=== PATIENT | female | born 1985 | race Caucasian/White ===

== ENCOUNTER 2016-11-18 10:57 | Emergency (ER) | payer OTHER ==
[~2016-11-18] VITALS: Ht 154.9 cm; Wt 94.4 kg
[~2016-11-18 10:57] MED LIST: ACET-1256 PO; CITA20TA4 PO; LORA10TA5 PO; LRS10 PO; NAPR-1169 PO; PRLSR20 PO
[2016-11-18 11:03] VITALS: TEMP 36.3; Ht 154.9 cm; Wt 94.4 kg
[2016-11-18] MEDS ORDERED: CITA40TA4 PO (11:29)
[2016-11-18] MEDS ORDERED: OMEP20CA9 PO (11:29)
--- NOTE | 2016-11-18 11:47 | DIAGNOSTIC IMAGING REPORT ---
CHEST ONE VIEW PORTABLE HISTORY: Atypical Chest Pain COMPARISON: Chest 07/12/2015. FINDINGS: The lungs are clear. Cardiac silhouette is normal in size. No pleural effusions. No pneumothorax. There are low lung volumes. IMPRESSION: No acute process. Electronically signed by: Andrew Lloyd M.D. 11/18/2016 11:46 AM Dictated Date/Time: 11/18/2016 11:45 AM
[2016-11-18] MEDS ORDERED: ATV1 PO (11:56)
[2016-11-18 13:08] LABS: BASO % 0.2 %; BASO ABS # 0.02 K/uL (0-0.2); COMPLETE YES; EOS % 1.2 %; HEMATOCRIT 43.8 % (37-47); IG% 0.2 %; LYMPH % 23.3 %; LYMPH ABS # 2.19 K/uL (1.2-3.4); MEAN CELL VOLUME 85.9 fL (80-100); MEAN CORPUSCULAR HEMOGLOBIN 29.4 pg (25-34); MEAN CORPUSCULAR HGB CONC 34.2 g/dl (32-36); MEAN PLATELET VOLUME 9.5 fL (7.4-10.4); MONO % 7.2 %; NEUT % 67.9 %; PLATELET COUNT 272 K/uL (130-400); WHITE BLOOD COUNT 9.38 K/uL (4.8-10.8)
[2016-11-18 13:17] LABS: BLOOD UREA NITROGEN 8 mg/dl (7-18); BUN/CREATININE RATIO 12.6 (10-20); CALCIUM 8.9 mg/dl (8.5-10.1); CARBON DIOXIDE 27 mmol/L (21-32); CHLORIDE 108 mmol/L (98-107); CREATININE 0.67 mg/dl (0.60-1.20); GLUCOSE 90 mg/dl (70-99); POTASSIUM 3.8 mmol/L (3.5-5.1); SODIUM 141 mmol/L (136-145)
[2016-11-18] MEDS ORDERED: SODIUM CHLORIDE 0.9% 1000ML 1,000 ML IV STA (13:39)
[2016-11-18] MEDS ORDERED: OPTIRAY 320 IV PRN (13:45)
--- NOTE | 2016-11-18 14:20 | DIAGNOSTIC IMAGING REPORT ---
CT ANGIOGRAM OF THE CHEST CLINICAL HISTORY: Atypical chest pain. COMPARISON STUDY: Chest x-ray dated 11/18/2016. TECHNIQUE: Following the IV administration of 78 cc of Optiray 320, CT angiogram of the chest was performed from the upper abdomen to the thoracic inlet utilizing the pulmonary embolus protocol. Images are reviewed in the axial, sagittal, and coronal planes. 3-D MIPS images are created and assessed. IV contrast was administered without complication. A dose lowering technique was utilized adhering to the principles of ALARA. CT DOSE: 528.30 mGy.cm FINDINGS: Thyroid: Imaged portions of the thyroid gland are normal in size and attenuation. Thoracic aorta: The thoracic aorta is normal in caliber and demonstrates standard 3-vessel arch anatomy. No dissection is seen. Pulmonary vasculature: The pulmonary trunk is normal in caliber. There are no filling defects identified in main, lobar, or segmental pulmonary branches to suggest pulmonary embolus. Heart: The heart is normal in size and configuration, and there is trace pericardial fluid. Lungs and pleural spaces: The lungs and pleural spaces are clear noting dependent atelectasis. The trachea and central airways are patent. Mediastinum: There is no mediastinal lymphadenopathy. Yuly: Clear. Axillae: There is no axillary lymphadenopathy. Upper abdomen: There is a tiny hiatal hernia. Partially visualized upper abdominal viscera is otherwise within normal limits. Skeletal structures: No lytic or blastic bony lesions are seen. IMPRESSION: 1. There is no evidence of pulmonary embolus in the main, lobar, or segmental pulmonary arteries. 2. The lungs are clear. Electronically signed by: Nimesh Guzmán M.D. 11/18/2016 2:18 PM Dictated Date/Time: 11/18/2016 2:15 PM
[2016-11-18 14:26] VITALS: BP 119/82; PULSE 95; O2SAT 99
--- NOTE | 2016-11-18 14:32 | EMERGENCY ROOM VISIT NOTE ---
History Report prepared by Kurt: Zayra Puga Under the Supervision of: Dr. Kwame Cui M.D. First contact with patient: 11:16 Chief Complaint: WEAKNESS Stated Complaint: WEAKNESS, HEAVINESS IN ARM/PAIN History of Present Illness The patient is a 31 year old female who presents to the Emergency Room with complaints of intermittent weakness for the past 2 weeks. With the weakness, she also gets chest discomfort. She is currently does not have any pain. She has not taken any medications for her pain. She is having elbow pain which has traveled up her arm and headache. She has SOB times and had some tingling this morning. She reports abdominal pain which started 1.5 weeks ago. She denies any swelling in the legs or ankles, dysuria, or diarrhea. She denies any falls or injury. She denies any history of blood clots. She denies any alcohol or drug use. Source of History: patient Onset: 2 weeks ago Position: other (global) Quality: other (weakness) Timing: intermittent Associated Symptoms: + headache, + chest pain, + SOB, + abdominal pain, No diarrhea, No urinary symptoms Note: Pt reports tingling, left arm pain. Pt denies swelling in legs or ankles. Review of Systems See HPI for pertinent positives & negatives. A total of 10 systems reviewed and were otherwise negative. Past Medical & Surgical Medical Problems: (1) Depression Family History No pertinent family history stated. Social History Smoking Status: Never Smoker Alcohol Use: none Housing Status: lives with family Current/Historical Medications Scheduled Citalopram (Citalopram Hydrobromide), 1 TAB PO DAILY Loratadine (Claritin), 10 MG PO DAILY Omeprazole (Prilosec), 1 TAB PO BID Scheduled PRN Acetaminophen (Tylenol), 500 MG PO Q4 PRN for Pain Naproxen (Naprosyn), 500 MG PO BID PRN for Pain Miscellaneous Medications Lorazepam (Lorazepam), 1 TAB PO Allergies Coded Allergies: Amoxicillin (Verified Allergy, Unknown, hives, 11/18/16) Physical Exam Vital Signs Date Time Temp Pulse Resp B/P (MAP) Pulse Ox O2 Delivery O2 Flow Rate FiO2 11/18/16 14:26 95 18 119/82 99 Room Air 11/18/16 13:36 90 18 144/97 98 Room Air 8/3/17 13:21 89 11/18/16 11:17 98 11/18/16 11:03 36.3 80 18 151/96 97 Room Air Physical Exam GENERAL: Patient is anxious appearing and in minimal distress. HEENT: No acute trauma, normocephalic atraumatic, mucous membranes moist, no nasal congestion, no scleral icterus. NECK: No stridor, no adenopathy, no meningismus, trachea is midline. LUNGS: No dyspnea. Clear to auscultation and equal bilaterally. No wheeze, no rhonchi. HEART: Regular rate and rhythm. No murmurs, rubs, gallops appreciated. ABDOMEN: Soft, nontender, bowel sounds positive, no masses appreciated, no peritonitis. BACK: No midline tenderness, no CVA tenderness EXTREMITIES: Normal motion all extremities, no cyanosis, no edema. NEUROLOGIC: Alert and oriented, no acute motor or sensory deficits, no focal weakness, cranial nerves grossly intact. SKIN: No rash, no jaundice, no diaphoresis. Medical Decision & Procedures ER Provider Diagnostic Interpretation: X ray results are stated below per my interpretation and the radiologist's interpretation. Radiology results and stated below per my review and radiologist interpretation: CHEST ONE VIEW PORTABLE HISTORY: Atypical Chest Pain COMPARISON: Chest 07/12/2015. FINDINGS: The lungs are clear. Cardiac silhouette is normal in size. No pleural effusions. No pneumothorax. There are low lung volumes. IMPRESSION: No acute process. Electronically signed by: Andrew Lloyd M.D. 11/18/2016 11:46 AM Dictated Date/Time: 11/18/2016 11:[address] ANGIOGRAM OF THE CHEST CLINICAL HISTORY: Atypical chest pain. COMPARISON STUDY: Chest x-ray dated 11/18/2016. TECHNIQUE: Following the IV administration of 78 cc of Optiray 320, CT angiogram of the chest was performed from the upper abdomen to the thoracic inlet utilizing the pulmonary embolus protocol. Images are reviewed in the axial, sagittal, and coronal planes. 3-D MIPS images are created and assessed. IV contrast was administered without complication. A dose lowering technique was utilized adhering to the principles of ALARA. CT DOSE: 528.30 mGy.cm FINDINGS: Thyroid: Imaged portions of the thyroid gland are normal in size and attenuation. Thoracic aorta: The thoracic aorta is normal in caliber and demonstrates standard 3-vessel arch anatomy. No dissection is seen. Pulmonary vasculature: The pulmonary trunk is normal in caliber. There are no filling defects identified in main, lobar, or segmental pulmonary branches to suggest pulmonary embolus. Heart: The heart is normal in size and configuration, and there is trace pericardial fluid. Lungs and pleural spaces: The lungs and pleural spaces are clear noting dependent atelectasis. The trachea and central airways are patent. Mediastinum: There is no mediastinal lymphadenopathy. Yuly: Clear. Axillae: There is no axillary lymphadenopathy. Upper abdomen: There is a tiny hiatal hernia. Partially visualized upper abdominal viscera is otherwise within normal limits. Skeletal structures: No lytic or blastic bony lesions are seen. IMPRESSION: 1. There is no evidence of pulmonary embolus in the main, lobar, or segmental pulmonary arteries. 2. The lungs are clear. Electronically signed by: Nimesh Guzmán M.D. 11/18/2016 2:18 PM Dictated Date/Time: 11/18/2016 2:15 PM Laboratory Results 11/18/16 11:35 Red Blood Count 5.10, Mean Corpuscular Volume 85.9, Mean Corpuscular Hemoglobin 29.4, Mean Corpuscular Hemoglobin Concent 34.2, Mean Platelet Volume 9.5, Neutrophils (%) (Auto) 67.9, Lymphocytes (%) (Auto) 23.3, Monocytes (%) (Auto) 7.2, Eosinophils (%) (Auto) 1.2, Basophils (%) (Auto) 0.2, Neutrophils # (Auto) 6.36, Lymphocytes # (Auto) 2.19, Monocytes # (Auto) 0.68, Eosinophils # (Auto) 0.11, Basophils # (Auto) 0.02 11/18/16 11:35 Test 11/18/16 11:35 11/18/16 11:37 11/18/16 13:09 White Blood Count 9.38 K/uL (4.8-10.8) Red Blood Count 5.10 M/uL (4.2-5.4) Hemoglobin 15.0 g/dL (12.0-16.0) Hematocrit 43.8 % (37-47) Mean Corpuscular Volume 85.9 fL (80-100) Mean Corpuscular Hemoglobin 29.4 pg (25-34) Mean Corpuscular Hemoglobin Concent 34.2 g/dl (32-36) Platelet Count 272 K/uL (130-400) Mean Platelet Volume 9.5 fL (7.4-10.4) Neutrophils (%) (Auto) 67.9 % Lymphocytes (%) (Auto) 23.3 % Monocytes (%) (Auto) 7.2 % Eosinophils (%) (Auto) 1.2 % Basophils (%) (Auto) 0.2 % Neutrophils # (Auto) 6.36 K/uL (1.4-6.5) Lymphocytes # (Auto) 2.19 K/uL (1.2-3.4) Monocytes # (Auto) 0.68 K/uL (0.11-0.59) Eosinophils # (Auto) 0.11 K/uL (0-0.5) Basophils # (Auto) 0.02 K/uL (0-0.2) RDW Standard Deviation 43.0 fL (36.4-46.3) RDW Coefficient of Variation 13.7 % (11.5-14.5) Immature Granulocyte % (Auto) 0.2 % Immature Granulocyte # (Auto) 0.02 K/uL (0.00-0.02) Anion Gap 6.0 mmol/L (3-11) Est Creatinine Clear Calc Drug Dose 125.2 ml/min Estimated GFR () 133.9 Estimated GFR (Non- 115.5 BUN/Creatinine Ratio 12.6 (10-20) Calcium Level 8.9 mg/dl (8.5-10.1) Troponin I < 0.015 ng/ml (0-0.045) Bedside D-Dimer > 450 ng/mlFEU (0-450) D-Dimer 460 ug/L FEU (0-500) Laboratory results as reviewed by me. Medications Administered Medications (Trade) Dose Ordered Sig/Jacy Route Start Time Stop Time Status Last Admin Dose Admin Sodium Chloride 1,000 ml @ 999 mls/hr Q1H1M STAT IV 11/18/16 13:39 11/18/16 14:39 DC 11/18/16 13:39 999 MLS/HR ECG Indication: weakness Rate (beats per minute): 88 Rhythm: normal sinus Findings: no acute ischemic change, no ectopy ED Course 1117: The patient was evaluated in room B11B. A complete history and physical exam was performed. 1338: I reevaluated the patient. She would like a chest CT. I discussed the multiple risks and she wishes to proceed. 1339: NSS 1000 ml @ 999 mls/hr IV. 1430: I reevaluated the patient. I discussed results and discharge instructions : she verbalized understanding and agreement. The patient is ready for discharge. Medical Decision Differential: Cardiac Ischemia (STEMI, NSTEMI, Unstable Angina, etc), Aortic Dissection, Arrhythmia, Pulmonary Embolism, Pneumonia, Pneumothorax, MSK, Infectious, Pericarditis/Myocarditis, Esophageal Rupture, Gastrointestinal, amongst other pathologies entertained. 31 yr old female with complaint of generalized fatigue, left chest pain, shortness of breath, weakness, headache, abdominal discomfort, arm/foot/mouth tingling amongst large host of other positive review of systems. Symptoms coming in waves and not here currently. POC Dimer positive though lab is version is actually negative. I have low suspicion of PE, however, after discussion with patient regarding this, my clinical suspicion and risks of imaging, she very much wishes to have CT PE study done. Fortunately this is negative. Rest of labs look OK. EKG Trop unremarkable. She has stable vitals , no neuro deficits, no head injury nor other neuro findings and I feel that further work-up can be completed as outpatient. Customary review of discharge instructions reviewed. Medication Reconcilliation Current Medication List: was personally reviewed by me Blood Pressure Screening Patient's blood pressure: Normal blood pressure Blood pressure disposition: Did not require urgent referral Impression Primary Impression: Generalized weakness Additional Impression: Chest pain Scribe Attestation The scribe's documentation has been prepared under my direction and personally reviewed by me in its entirety. I confirm that the note above accurately reflects all work, treatment, procedures, and medical decision making performed by me. Departure Information Dispostion Home / Self-Care Referrals No Doctor, Assigned (PCP) Patient Instructions My [facility] Additional Instructions A very large work-up was done which was unremarkable. You have been examined and treated today on an emergency basis only. This is not a substitute for, or an effort to provide, complete comprehensive medical care. It is impossible to recognize and treat all injuries or illnesses in a single emergency department visit. It is therefore important that you follow up closely with your Primary Physician. Call as soon as possible for an appointment so you can review all labs, imaging and other testing that you had. Return to Emergency Department, call 911 or seek immediate medical attention if you feel your symptoms are worsening. Problem Qualifiers
== END 2016-11-18 14:48 | disposition home or self-care (01) ==
LOC: C.EDB 10:59
DX: R53.1 Weakness (principal); R07.9 Chest pain, unspecified; F32.9 Major depressive disorder, single episode, unspecified; Z79.899 Other long term (current) drug therapy

== ENCOUNTER → 2017-06-14 | Outpatient (CLI) | payer OTHER ==
[~2017-06-14] MED LIST changes: +ATV1 PO; -CITA20TA4 PO; +CITA40TA4 PO; -LORA10TA5 PO; +LORA10TA6 PO; -LRS10 PO; +OMEP20CA9 PO; -PRLSR20 PO
== END | disposition home or self-care (01) ==
LOC: C.LAB1850 16:31
PROVIDERS: ATTEND Internal Medicine Infectious Disease
DX: Z23 Encounter for immunization (principal)